=== PATIENT | female | born 1960 | race Caucasian/White ===

== ENCOUNTER → 2020-07-25 | Outpatient (CLI) | payer MEDICARE, OTHER ==
--- NOTE | 2020-07-25 15:34 | EST ---
EXERCISE STRESS AGE: 60 SEX: Female HT: 5'5" WT: 183 lbs. PROTOCOL: Chris STAGE: 3 DURATION OF EXERCISE: 8 minutes 4 seconds. HEART RATE REST: 82 BLOOD PRESSURE REST: 120/54 MAXIMUM HEART RATE ACHIEVED: 170 MAXIMUM BLOOD PRESSURE: 162/112 85% MPHR: 135 100% MPHR: 159 METS: 9.7 INDICATIONS: Chest pain CLINICAL INFORMATION: Baseline rhythm is a sinus mechanism, rate of 82, normal axis and intervals. Normal electrocardiogram with RSR prime. Baseline blood pressure 120/54 mmHg. Patient exercised on Chris protocol for 8 minutes 4 seconds reaching peak rate 170 beats per minute which is equal to 100% maximum predicted heart rate. Peak blood pressure 162/112 mmHg. Test was terminated secondary to fatigue. There was no chest pain. Electrocardiograph monitoring revealed no evidence of diagnostic ischemic ST deviation. CONCLUSION: 1. Average exercise tolerance with normal electrocardiographic response to exercise. 2. No chest discomfort reported. MMODL / IJN: [id number] /
== END | disposition home or self-care (01) ==
LOC: RADNMMAIN 08:30
PROVIDERS: ATTEND Family Medicine
DX: R07.9 Chest pain, unspecified (principal)
CPT/HCPCS: 93017

== ENCOUNTER 2020-10-02 09:55 | Day surgery (SDC) | payer MEDICARE, OTHER ==
[2020-09-27 15:29] VITALS: BMI 29.7
[2020-10-02 10:13] VITALS: TEMP 97.6
[2020-10-02] MEDS ORDERED: LACTATED RINGERS 1,000 ML IV ONE (10:23)
[2020-10-02] MEDS ORDERED: PROPOFOL 10 MG/ML 20 ML VIAL IV ONE (11:15)
--- NOTE | 2020-10-02 11:45 | P.PCN ---
Date of Procedure: 10/02/20 Description of Procedure: BRIEF HISTORY: Patient is a 60-year-old female presenting for outpatient colonoscopy for screening for malignant neoplasm of the colon. No family history of colon cancer. Last colonoscopy 11 years ago. No change in bowel habits but she reports chronic constipation at baseline. PROCEDURE PERFORMED: Colonoscopy. PREOPERATIVE DIAGNOSIS: Screening for malignant neoplasm of the colon, last colonoscopy 11 years ago. ESTIMATED BLOOD LOSS: Minimal. IV sedation per Anesthesia. PROCEDURE: After informed consent was obtained, the patient, was brought into the endoscopy unit. IV sedation was administered by Anesthesia under continuous monitoring. D igital rectal examination was normal. Initially the Olympus CF-190 flexible video colonoscope was then inserted in the rectum, gradually advanced into the cecum without any difficulty. Careful examination was performed as the scope was gradually being withdrawn. Ileocecal valve and the appendiceal orifice were visualized and appeared normal. Prep was excellent. Mucosa of the cecum, ascending colon, transverse colon, descending colon, sigmoid colon, and rectum appeared normal, with multiple small and large mouth diverticula throughout the colon. Retroflexion was performed in the rectum and no lesions were seen, low- grade internal hemorrhoids. The patient tolerated the procedure well. IMPRESSION: Moderate omalley diverticulosis. Internal hemorrhoids. RECOMMENDATIONS: Findings of this examination were discussed with the patient and her family. Okay to resume diet. Okay to resume medications. Recommend repeat colonoscopy in 10 years for screening for malignant neoplasm of the colon or sooner if signs or symptoms which warrant further evaluation developed.
[2020-10-02 11:55] VITALS: RESP 16
[2020-10-02 12:04] VITALS: BP 128/88; PULSE 66
== END 2020-10-02 12:49 | disposition home or self-care (01) ==
LOC: ORWHC2ENDO 09:55
PROVIDERS: ATTEND Internal Medicine
DX: Z12.11 Encounter for screening for malignant neoplasm of colon (principal); K57.90 Diverticulosis of intestine, part unspecified, without perforation or abscess without bleeding; K64.8 Other hemorrhoids; K59.09 Other constipation; E78.5 Hyperlipidemia, unspecified
CPT/HCPCS: 45378; J2704

== ENCOUNTER 2021-11-12 09:53 | Day surgery (SDC) | payer MEDICARE, OTHER ==
[2021-11-08 16:15] VITALS: BMI 32.9
[~2021-11-12 09:53] MED LIST: LACTATED RINGERS 1,000 ML IV SCH
[2021-11-12 10:31] VITALS: RESP 16; TEMP 98.1
[2021-11-12] MEDS ORDERED: PROPOFOL 10 MG/ML 20 ML VIAL IV ONE (11:25)
[2021-11-12] MEDS ORDERED: LIDOCAINE 2% INJ 20 MG/ML (2 ML VIAL) ONE (11:25)
--- NOTE | 2021-11-12 11:40 | P.PCN ---
Date of Procedure: 11/12/21 Implants: BRIEF HISTORY: Patient is a 61-year-old, pleasant, white female scheduled for an upper endoscopy as a part of evaluation of intermittent nausea vomiting for the last 2 years duration.. She was recently started on omeprazole 20 mg twice daily and symptoms are gradually improving. PROCEDURE PERFORMED: Esophagogastroduodenoscopy with biopsy. PREOPERATIVE DIAGNOSIS: Nausea vomiting of 2 days' duration. IV sedation per anesthesia. PROCEDURE: After informed consent was obtained, the patient was brought into the endoscopy unit. IV sedation was administered by Anesthesia under continuous monitoring. Initially the Olympus GIF-140 video endoscope was inserted into the mouth. Esophagus intubated without any difficulty. It was gradually advanced into the stomach and duodenum and carefully examined. The bulb and the second part of the duodenum appeared normal. Abscesses were done from the duodenum to rule out celiac disease. The scope at this time was withdrawn to the stomach, adequately insufflated with air, and upon careful examination, mucosa of the antrum had mild gastritis and biopsies were done from this area., body, cardia and the fundus appeared normal. The scope was then withdrawn into the esophagus. The GE junction was located at 39 cm from the incisors. The esophagus appeared normal. There were no erosions or ulcerations seen , biopsies were done from the distal and the patient tolerated the procedure well. IMPRESSION: 1. Minimal antral gastritis. 2. No evidence of esophagitis, esophageal stricture or gastric outlet obstruction. RECOMMENDATIONS: The findings of this examination were discussed with the patient as well as her family. She was advised to follow with the biopsy results. She'll continue with omeprazole 20 mg twice daily and follow antireflux measures..
[2021-11-12 12:08] VITALS: BP 136/85; PULSE 68
== END 2021-11-12 12:25 | disposition home or self-care (01) ==
LOC: ORWHC2ENDO 09:53
PROVIDERS: ATTEND Internal Medicine Gastroenterology
DX: K29.50 Unspecified chronic gastritis without bleeding (principal); K21.00 Gastro-esophageal reflux disease with esophagitis, without bleeding; E78.5 Hyperlipidemia, unspecified; Z79.899 Other long term (current) drug therapy; Z87.891 Personal history of nicotine dependence; Z80.49 Family history of malignant neoplasm of other genital organs
CPT/HCPCS: 88305; 43239; J2704; J2001

== ENCOUNTER → 2023-06-17 | Outpatient (CLI) | payer MEDICARE, OTHER ==
--- NOTE | 2023-06-17 22:38 | BD ---
EXAMINATION TYPE: Axial Bone Density DATE OF EXAM: 06/17/2023 CLINICAL HISTORY: 63 years old Female. ICD-10 CODE: N95.1 MENOPAUSE Height: 63.25 Weight: 199 FRAX RISK QUESTIONS: History of Fracture in Adulthood: no Secondary Osteoporosis: no RISK FACTORS HISTORY OF: Surgery to Spine/Hip(right/left)/Wrist (right/left): no MEDICATIONS: Thyroid Medications: no Osteoporosis Medications: no EXAM MEASUREMENTS: Bone mineral densitometry was performed using the [employer] System. Bone mineral density as measured about the Lumbar spine is: ----- L1-L4(G/cm2): 1.327 T Score Values are as follows: ----- L1: 0.6 ----- L2: 0.8 ----- L3: 1.1 ----- L4: 2.0 ----- L1-L4: 1.2 Z Score Values are as follows: ----- L1: 1.3 ----- L2: 1.5 ----- L3: 1.8 ----- L4: 2.7 ----- L1-L4: 1.9 Bone mineral density baseline Bone mineral density about the R hip (g/cm2): 1.147 Bone mineral density about the L hip (g/cm2): 1.178 T Score values are as follows: -----R Neck: 0.6 -----L Neck: 0.7 -----R Total: 1.1 -----L Total: 1.4 Z Score values are as follows: -----R Neck: 1.4 -----L Neck: 1.6 -----R Total: 1.6 -----L Total: 1.9 Bone mineral density baseline FRAX%s: The graph provided illustrates a 5.6% chance for a major osteoporotic fx and a 0.1% chance fo r the hips probability for fx in 10 years time. IMPRESSION: Normal (Values between +1 and -1 indicate normal bone mass). Consider repeating this study in 5 year s or sooner if there is some new clinical indication. NOTE: T-SCORE=SD OF THE YOUNG ADULT MEAN.
--- NOTE | 2023-06-19 11:12 | MM ---
Reason for Exam: Screening (asymptomatic). Last mammogram was performed 5 year(s) and 0 month(s) ago. Patient History: Menarche at age 12. First Full-Term at age 19. Postmenopausal. Risk Values: Lexie 5 year model risk: 1.4%. NCI Lifetime model risk: 5.8%. Prior Study Comparison: 05/14/2017 Bilateral Screening Mammogram, [facility] [place]. 06/01/2018 Bilateral Screening Mammogram, [facility] [place]. Tissue Density: There are scattered areas of fibroglandular density. Findings: Analyzed By CAD. There is no suspicious group of microcalcifications. There is a nodular density in the central inner margin right breast. Overall Assessment: Incomplete: need additional imaging evaluation, BI-RAD 0 Management: Diagnostic Mammogram of the right breast. . Patient should continue monthly self-breast exams. A clinical breast exam by your physician is recommended on an annual basis. This exam should not preclude additional follow-up of suspicious palpable abnormalities. Note on Lexie scores and lifetime risk: 1. A Lexie score greater than 3% is considered moderate risk. If this is the case, consider specialist referral to assess eligibility for a risk reducing agent. 2. If overall lifetime risk for the development of breast cancer is 20% or higher, the patient may qualify for future screening with alternating mammogram and breast MRI. Electronically signed and approved by: Alexi Medina M.D. Radiologis
== END | disposition home or self-care (01) ==
LOC: RADBDWWP 10:09
PROVIDERS: ATTEND Family Medicine
DX: Z12.31 Encounter for screening mammogram for malignant neoplasm of breast (principal); N95.1 Menopausal and female climacteric states
CPT/HCPCS: 77063; 77067; 77080

== ENCOUNTER → 2023-06-26 | Outpatient (CLI) | payer MEDICARE, OTHER ==
--- NOTE | 2023-06-26 10:26 | MM ---
Reason for Exam: Follow-up at short interval from prior study. Last screening mammogram was performed less than 1 month ago. Patient History: Menarche at age 12. First Full-Term at age 19. Postmenopausal. Risk Values: Lexie 5 year model risk: 1.4%. NCI Lifetime model risk: 5.8%. Tissue Density: Right: There are scattered areas of fibroglandular density. Findings: Analyzed By CAD. Impression there is persistence of a 0.3 cm tiny nodular density with partially distinct margins. A small calcification is present within this area. This appears to be at the 2:00 posterior position 10 cm from nipple. Additional evaluation with ultrasound is recommended. Overall Assessment: Incomplete: need additional imaging evaluation, BI-RAD 0 Management: Diagnostic Breast Ultrasound of the right breast. A negative mammogram report should not preclude additional follow up of suspicious palpable abnormalities. Patient should continue monthly self breast exam. A clinical breast exam by your physician is recommended on an annual basis and results should be correlated with mammographic findings. Electronically signed and approved by: Tyrell Shultz D.O. Radiologis
--- NOTE | 2023-06-26 11:35 | USB ---
Reason for Exam: Additional evaluation requested from abnormal screening. Patient History: Menarche at age 12. First Full-Term at age 19. Postmenopausal. Risk Values: Lexie 5 year model risk: 1.4%. NCI Lifetime model risk: 5.8%. Technique: Method: Targeted. Prior Study Comparison: 05/14/2017 Bilateral Screening Mammogram, [facility] [place]. 06/01/2018 Bilateral Screening Mammogram, [facility] [place]. 06/17/2023 Bilateral MG 3D screening mammo w/cad, [facility]. Findings: The medial section of the breast of the right breast, the axilla of the right breast and the retroareolar of the right breast were scanned. No solid or cystic masses are identified. The punctate calcification is not identified. May have been present previously in retrospect. Precautionary 6 month follow-up right breast mammogram is recommended. Overall Assessment: Probably benign, BI-RAD 3 Management: Diagnostic Mammogram of the right breast in 6 months. A clinical breast exam by your physician is recommended on an annual basis and results should be correlated with mammographic findings. This exam should not preclude additional follow-up of suspicious palpable abnormalities. Results were given to the patient verbally at the time of exam. Electronically signed and approved by: Tyrell Shultz D.O. Radiologis
== END | disposition home or self-care (01) ==
LOC: RADMAMWWP 09:59
PROVIDERS: ATTEND Family Medicine
DX: R92.321 Mammographic fibroglandular density, right breast (principal); Z78.0 Asymptomatic menopausal state
CPT/HCPCS: 77065; 76642; G0279; 77061

== ENCOUNTER → 2024-07-20 | Outpatient (CLI) | payer MEDICARE, OTHER ==
[2024-07-20 15:01] LABS: Basophils # (A) 0.01 X 10*3/uL (0.00-0.10); Basophils % (A) 0.1 %; Eosinophils # (A) 0.16 X 10*3/uL (0.04-0.35); Eosinophils % (A) 2.3 %; HCT 37.4 % (37.2-50.0); HGB 12.1 g/dL (12.0-17.0); Lymphocytes # (A) 2.19 X 10*3/uL (0.90-5.00); Lymphocytes % (A) 31.9 %; MCH 29.9 pg (27.0-32.0); MCHC 32.4 g/dL (32.0-37.0); MCV 92.3 FL (80.0-97.0); Mean Platelet Volume 9.9 FL (9.5-12.2); Monocytes % (A) 5.8 %; NRBC Per 100 WBC 0 X 10*3/uL (0.00-0.01); Neutrophils % (A) 59.8 %; Platelet Count 280 X 10*3/uL (140-440); RBC 4.05 X 10*6/uL (4.10-5.60); RDW 12.5 % (11.5-14.5); WBC 6.87 X 10*3/uL (4.50-10.00)
[2024-07-20 15:24] LABS: ALT 16 U/L (8-49); AST 20 U/L (13-35); Albumin 4.4 g/dL (3.8-4.9); Albumin/Globulin Ratio 1.57 Ratio (1.60-3.17); Alkaline Phosphatase 74 U/L (41-126); Blood Urea Nitrogen 9.6 mg/dL (9.0-27.0); Carbon Dioxide 25.8 mmol/L (21.6-31.8); Chloride 101 mmol/L (96-109); Globulin 2.8 g/dL (1.6-3.3); Glucose 89 mg/dL (70-110); Potassium 4.2 mmol/L (3.5-5.5); Sodium 137 mmol/L (135-145); Total Bilirubin 0.3 mg/dL (0.3-1.2); Total Protein 7.2 g/dL (6.2-8.2)
== END | disposition home or self-care (01) ==
LOC: LABWHC1 10:43
PROVIDERS: ATTEND Nurse Practitioner Family
DX: R63.4 Abnormal weight loss (principal)
CPT/HCPCS: 36415; 80053; 85025

== ENCOUNTER → 2024-08-03 | Outpatient (CLI) | payer MEDICARE, OTHER ==
[2024-08-03 13:25] LABS: African American GFR (CKD) >90 (>60 ml/min/1.73 sqM); Blood Urea Nitrogen 12 mg/dL (7-17); Non-African American GFR(CKD) 80 (>60 ml/min/1.73 sqM)
--- NOTE | 2024-08-03 15:06 | CT ---
EXAMINATION TYPE: CT abdomen pelvis w con DATE OF EXAM: 08/03/2024 COMPARISON: None CLINICAL INDICATION: Female, 64 years old with history of R63.4 ABNORMAL WEIGHT LOSS; PHH, Abdominal pain, hx of IBS TECHNIQUE: Performed with Oral Contrast and with IV Contrast, patient injected with 100ml mL of Isovue 300. CT DLP: 831.[address] CTDI: mGy Automated exposure control for dose reduction was used. FINDINGS: There is a 7 mm groundglass juxtapleural nodule in the left lung base and mild interstitial scarring in the left lung base. The gallbladder is normal without distention, wall thickening, pericholecystic fluid or gallstones. T here is no biliary ductal dilatation. There is no focal mass or organomegaly involving the liver, pancreas, spleen or adrenal glands. There is no solid renal mass or hydronephrosis and there is homogeneous contrast enhancement of the r enal parenchyma. The caliber the abdominal aorta is normal is no retroperitoneal adenopathy or hemorr eddie. The bowel loops are normal in caliber and there is no evidence of dilatation or obstruction. No infla mmatory changes are identified in the bowel wall or mesentery. There is moderate diverticulosis of th e descending and sigmoid colon without CT evidence of acute diverticulitis. There is no free intraperitoneal air or fluid. No pelvic mass, free fluid, abscess or adenopathy. The osseous structures and soft tissues are intact. IMPRESSION: No acute changes within the abdomen or pelvis. [facility], , 08/03/2024 3:03 PM
== END | disposition home or self-care (01) ==
LOC: RADCTMAIN 12:49
PROVIDERS: ATTEND Internal Medicine Gastroenterology
DX: K58.9 Irritable bowel syndrome, unspecified (principal); R63.4 Abnormal weight loss; Z87.59 Personal history of other complications of pregnancy, childbirth and the puerperium
CPT/HCPCS: 82565; 84520; 74177; 36415; Q9967

== ENCOUNTER 2024-09-09 06:37 | Day surgery (SDC) | payer MEDICARE, OTHER ==
[~2024-09-09 06:37] MED LIST changes: +LIDOCAINE 1% (10MG/ML) FOR IV START INTRADERMA PRN
[2024-09-09] MEDS: IV FLUID CONTINUATION 1,000 ML IV ONE (07:24)
[2024-09-09 07:30] VITALS: TEMP 98.4
[2024-09-09] MEDS ORDERED: LIDOCAINE 1% INJ 10MG/ML (20 ML MDV) ONE (08:09)
[2024-09-09] MEDS ORDERED: PROPOFOL 10 MG/ML 20 ML VIAL IV ONE (08:09)
--- NOTE | 2024-09-09 08:36 | P.PCN ---
Date of Procedure: 09/09/24 Procedure(s) Performed: Brief history: Patient is a pleasant 64-year-old white female scheduled for an elective upper endoscopy as well as colonoscopy as a part of evaluation of abdominal pain, heartburn, excessive belching and bloating and change in bowel habits for the last 1 year duration she has been on Protonix 40 mg twice daily and still remains symptomatic. Has been having alternating diarrhea and constipation but no rectal bleeding. Procedure performed: Esophagogastroduodenoscopy with biopsy Colonoscopy with biopsy Preoperative diagnosis: GERD/excessive belching and heartburn Change in bowel habits Progressive weight loss Anesthesia: MAC Procedure: After informed consent was obtained from the patient was brought into the endoscopy unit and IV sedation was administered by anesthesia under continuous monitoring. Initially upper endoscopy was done. The Olympus GF 160 video endoscope was inserted inserted into the mouth and esophagus intubated without any difficulty and was gradually advanced into the stomach and duodenum and carefully examined. The bulb and second part of the duodenum appeared normal. Biopsies were done from the duodenum to rule out celiac disease. The scope was then withdrawn into the stomach adequately insufflated with air and upon careful examination the antrum and mild gastritis and biopsies were done from this area. Body, cardia and fundus appeared normal. The scope was then withdrawn into the esophagus. The GE junction was located at 40 cm to the incisors. It appeared regular with no erythema erosions or ulcerations. Rest of the esophagus appeared normal. Patient tolerated the procedure well. At this time the patient continued to remain sedation. Initial digital rectal examination was normal. Olympus CF 160 video colonoscope was then inserted into the rectum and gradually advanced to the cecum without any difficulty. Careful examination was performed as the scope was gradually being withdrawn. The prep was excellent. The cecum, ascending colon, transverse colon, descending colon, sigmoid colon and rectum appeared normal. Diffuse scattered diverticulosis. Random biopsies were done from the ascending and descending colon to rule out microscopic/collagenous colitis. Retroflexion was performed in the rectum and no lesions were noted. Patient tolerated the procedure well. Impression: 1. Upper endoscopy revealed mild antral gastritis but no ulcer esophagitis or peptic ulcer disease 2. Colonoscopy revealed diffuse scattered diverticulosis but no evidence of colitis or colorectal neoplasia Recommendations: Findings of this examination were discussed with the patient as well as her family. She was advised to follow-up with the biopsy results. Continue with Protonix 40 mg twice daily. Follow-up in the office in 2 weeks. Recommend repeat screening colonoscopy in 10 years.
[2024-09-09 09:02] VITALS: BP 123/81; PULSE 80; RESP 16
== END 2024-09-09 09:19 | disposition home or self-care (01) ==
LOC: ORWHC2ENDO 06:37
PROVIDERS: ATTEND Internal Medicine Gastroenterology
DX: K21.9 Gastro-esophageal reflux disease without esophagitis (principal); K31.89 Other diseases of stomach and duodenum; K29.50 Unspecified chronic gastritis without bleeding; K57.30 Diverticulosis of large intestine without perforation or abscess without bleeding; E78.5 Hyperlipidemia, unspecified; M79.7 Fibromyalgia; F12.90 Cannabis use, unspecified, uncomplicated; F41.9 Anxiety disorder, unspecified; Z79.899 Other long term (current) drug therapy; Z87.891 Personal history of nicotine dependence
CPT/HCPCS: 45380; 43239; J2003; J2704; 88305

== ENCOUNTER → 2024-09-23 | Outpatient (CLI) | payer MEDICARE, OTHER | END | disposition home or self-care (01) | LOC: LABWHC1 10:33 | PROVIDERS: ATTEND Nurse Practitioner Family | DX: K21.9 Gastro-esophageal reflux disease without esophagitis (principal) | CPT/HCPCS: 36415; 83516 ==